=== PATIENT | male | born 1965 | race Caucasian/White ===

== ENCOUNTER → 2023-09-06 07:06 | Outpatient (REF) | payer BC, SELFPAY | LOC: HWRAD 07:06 | PROVIDERS: ATTENDING PHYSICIAN Internal Medicine | DX: Z87.891 Personal history of nicotine dependence (principal) | CPT/HCPCS: 71271 ==

== ENCOUNTER → 2023-09-10 | Outpatient (REF) | payer BC, SELFPAY | LOC: DHSLP | PROVIDERS: ATTENDING PHYSICIAN Internal Medicine | DX: G47.33 Obstructive sleep apnea (adult) (pediatric) (principal) | CPT/HCPCS: 95800 ==

== ENCOUNTER → 2023-10-29 07:21 | Outpatient (REF) | payer BC, SELFPAY | LOC: RCS 07:21 | PROVIDERS: ATTENDING PHYSICIAN Internal Medicine Cardiovascular Disease; FAMILY PHYSICIAN Family Medicine | DX: R93.89 Abnormal findings on diagnostic imaging of other specified body structures (principal) | CPT/HCPCS: 93017 ==

== ENCOUNTER → 2024-01-23 07:20 | Outpatient (REF) | payer BC, SELFPAY | LOC: HWRCS 07:20 | PROVIDERS: ATTENDING PHYSICIAN Internal Medicine; FAMILY PHYSICIAN Student in an Organized Health Care Education/Training Program | DX: I25.10 Atherosclerotic heart disease of native coronary artery without angina pectoris (principal) | CPT/HCPCS: 93306 ==

== ENCOUNTER 2024-05-31 20:07 | Emergency (ER) | payer BC, SELFPAY ==
[2024-05-31 20:10] VITALS: BP 124/69
[2024-05-31 20:22] VITALS: BP 128/71
--- NOTE | 2024-05-31 20:37 | ED.GENMED ---
History of Present Illness
General
Chief Complaint: Blood Pressure Problem
Source: patient and family
Time Seen by Provider: 05/31/24 20:19
History of Present Illness
History of Present Illness:
This patient is a 59-year-old male presents emergency department with reported low blood pressure at home. He was recently diagnosed with a [place] 3 weeks ago requiring emergent stent placement x 1. He has been generally compliant with his medications
although he admits that he forgot to take the aspirin and Plavix this morning. Upon hearing this, I immediately administered it to him. He says he felt well recently, today he just felt 'tired' all day. He denies any other symptoms such as chest
pain, dyspnea, diaphoresis, headache, dizziness, back pain, neck pain, numbness, or other complaints. When his blood pressure was checked at 8 PM it was noted to be low which prompted his visit here. Of note, patient had his ZAYNAB inhibitor
decreased by half on the 12th of this month for concerns of low blood pressure.
Past History
Past History
ED Past Medical History: CAD, HTN and Hypercholesterolemia
ED Past Surgical History: Cardiac
Social History
Tobacco: Smoker
Alcohol: Occasional
Drug: None
Personal:
Living: with family
Family History
Family History: Early CAD and CAD; Negative Diabetes, Hypertension or Asthma
Phy Exam
Physical Exam
Physical Exam:
GENERAL: Alert , in no apparent distress
EYE: pupils equal and reactive
NECK: Supple, no significant adenopathy.
ENT: o/p clr, mmm.
CARDIAC: Regular rate and rhythm .
LUNGS: Clear breath sounds bilaterally, no acute respiratory distress, no wheezes/rales/rhonchi
ABDOMEN: Soft, without focal tenderness, no r/g, no cvat
NEUROLOGICAL: Alert and oriented, no focal neuro deficits
SKIN: Warm and dry, skin intact.
MUSCULOSKELETAL: No edema, well perfused.
PSYCH: Normal and appropriate interaction.
Course
Orders/Labs/Results
Orders:
Orders
05/31/24 20:37
Electrocardiogram (*1) Stat
Reason for Study: Other
Other Reason for Exam: chest pain
Cardiac Monitoring- Treatment ONCE
EKG- Treatment ONCE
05/31/24 20:49
Complete Blood Count/No Diff Urgent
Comprehensive Metabolic Panel Urgent
Troponin I Urgent
Abnormal Lab Results
05/31/24
20:49
RBC 3.72 L 10^6/uL
(4.70-6.10)
Hgb 11.8 L g/dL
(13.0-18.0)
Hct 33.5 L %
(39.0-52.0)
MCH 31.7 H pg
(27.0-31.0)
BUN 21 H mg/dl
(9-20)
Glucose 109 H mg/dl
(70-99)
05/31/24 20:49
05/31/24 20:49
Vital Signs
Initial and Last Documented VS:
Initial Vital Signs
Temp Pulse Resp BP Pulse Ox
98.7 F 68 16 124/69 99
05/31/24 20:10 05/31/24 20:10 05/31/24 20:10 05/31/24 20:10 05/31/24 20:10
Last Documented Vital Signs
Temp Pulse Resp BP Pulse Ox
98.7 F 65 17 102/74 100
05/31/24 20:10 05/31/24 21:03 05/31/24 21:03 05/31/24 21:03 05/31/24 20:24
*Critical Care Note
Total Time (30-74mins, 75-104mins- exclusive of procedures): Not Applicable
Update Note
Update Note:
Patient presents to the Emergency Department with fatigue
Number and Complexity of Problems Addressed at the Encounter
� Chronic conditions affecting care:
� Acute Exacerbation and/or Progression of Chronic Illness:
� Differential Diagnosis includes: But not limited to hypotension, electrolyte disorder, ACS, anemia, etc. etc.
Amount and/or Complexity of Data to be Reviewed and Analyzed
� I performed an independent evaluation of and my interpretation is:
EKG: Read by me, normal sinus rhythm, normal rate, normal axis, nonspecific T wave inversions
CT:
Xrays:
Laboratory Studies: Generally unremarkable
Other:
� Review of other/old records reveals:
� Clinical information was obtained by an independent historian: and children who are at bedside
� Prescriptions/Medications Considered but not given:
� Further testing considered but not performed:
Risk of Complications and/or Morbidity or Mortality of Patient Management
� Social determinants of health affecting care:
� Discussion with other providers (PCP, Hospitalists, Consultants, etc):
� Escalation of care including admission/observation vs risk of discharge considered: Patient remains asymptomatic here. Of note, he states that he forgot to take all his medications this morning including his beta-laura and
ZAYNAB inhibitor. Case discussed with on-call renal technician for [facility]. Of note, patient's blood pressure has been relatively stable here and he does not have any symptoms. I highly doubt that his fatigue is a component of ACS but rather medication
beta-laura/hypotension related. Recommendation is for patient to discontinue the ramipril, and to decrease his beta-laura to 12.5 mg for the next 2 days until seen in follow-up on Sunday. Will discuss with patient including importance blood
pressure monitoring over the next 2 days, importance of taking antiplatelet agents, and reasons to return to the ER.
ED Attending Note
-
Portions of this chart may have been created with voice recognition software.� Occasional wrong word or��sound alike� substitutions may have occurred due to the inherent limitations of voice recognition software.
Discharge Plan
Departure
Patient Disposition: Home (Routine Discharge)
Date of Disposition: 05/31/24
Time of Disposition: 22:28
Patient with high blood pressure during this ER visit?: Yes
Condition: Good
Discharge Problem:
Hypotension, Fatigue
Instructions: Fatigue (DC), BLOOD PRESSURE
Prescriptions:
No Action
atorvastatin 80 mg Tablet
80 mg PO HS
clopidogrel [Plavix] 75 mg Tablet
75 mg PO DAILY
aspirin 81 mg Tablet,Chewable
81 mg PO DAILY
metoprolol succinate 25 mg Tablet Extended Release 24 Hr
25 mg PO DAILY
ramipril 5 mg Capsule
5 mg PO DAILY
Referrals:
Porfirio Smith MD [Family Provider] -
Activity Restrictions/Additional Instructions:
YOU SHOULD CALL YOUR SUPERVISOR [employer] [facility] ON SUNDAY MORNING WITH INTENTION TO BE SEEN THIS WEEK. YOU SHOULD DISCONTINUE YOUR MEDICATION CALLED RAMIPRIL. YOU SHOULD DECREASE YOUR METOPROLOL FROM 25 MG TO 12.5 MG ONCE A DAY. YOU SHOULD REMEMBER TO TAKE
YOUR ASPIRIN AND CLOPIDOGREL DIRECTED. THIS IS VERY IMPORTANT! IF YOU DEVELOP DIZZINESS, LOW BLOOD PRESSURE, CHEST PAIN, SHORTNESS OF BREATH, OR OTHER WORRISOME SIGNS, PLEASE RETURN TO THE ER IMMEDIATELY.
Interventions
Interventions:
*Risk Screen - Suicide Last Done: 05/31/24 20:10
*General Assessment Last Done: 05/31/24 20:51
*Neglect/Abuse Screening Last Done: 05/31/24 20:51
ED- Fall Risk Assessment Last Done: 05/31/24 21:05
*ED COVID-19 Vaccine History Last Done: 05/31/24 20:51
ED- Cardiac Assessment Last Done: 05/31/24 21:05
ED- Neurological Assessment Last Done: 05/31/24 21:05
ED- Pulmonary Assessment Last Done: 05/31/24 21:05
Discharge Date and Time
Print Language: [place]
--- NOTE | 2024-05-31 20:54 | EDRN ---
Around 2004 this evening, pts bp was 80/46 on home BP cuff. Pt says he felt fine when his bp was read as this low. Pt was lying still when it was taken. This was big difference from what pt's bp has been. Pt offers no complaints.
[2024-05-31 20:57] VITALS: BMI 28.6
[2024-05-31 20:57] LABS: Hematocrit 33.5 % (39.0-52.0); Hemoglobin 11.8 g/dL (13.0-18.0); Mean Corp Hgb Conc. 35.2 g/dL (33.0-37.0); Mean Corpuscular Hgb 31.7 pg (27.0-31.0); Mean Corpuscular Volume 90.1 fL (80.0-94.0); Mean Platelet Volume 10.4 fL (7.4-10.4); Platelet Count 140 10^3/uL (130-400); Red Blood Cell Count 3.72 10^6/uL (4.70-6.10); Red Cell Dist. Width 12.3 % (11.5-14.5); White Blood Cell Count 7.7 10^3/uL (4.8-10.8)
[2024-05-31 21:03] VITALS: BP 102/74
[2024-05-31 21:12] LABS: ALT (SGPT) 27 U/L (0-50); AST (SGOT) 25 U/L (17-59); Albumin 4.1 g/dl (3.5-5.0); Alkaline Phosphatase 57 U/L (38-126); Blood Urea Nitrogen 21 mg/dl (9-20); Calcium 8.8 mg/dl (8.4-10.2); Carbon Dioxide 28 mmol/L (22-30); Chloride 101 mmol/L (98-107); Estimated Creatinine Clearance 81 ml/min; Glucose 109 mg/dl (70-99); Potassium 4.5 mmol/L (3.5-5.1); Sodium 139 mmol/L (135-145); Total Bilirubin 0.5 mg/dl (0.2-1.3); Total Protein 6.6 g/dl (6.3-8.2); eGFR > 60.00
[2024-05-31 21:25] LABS: Troponin I < 0.012 ng/ml
[2024-05-31 22:00] VITALS: BP 110/72
== END 2024-05-31 22:55 | disposition home or self-care (01) ==
LOC: EMR 20:07
PROVIDERS: EMERGENCY PHYSICIAN Emergency Medicine; FAMILY PHYSICIAN Family Medicine
DX: I95.9 Hypotension, unspecified (principal); R53.83 Other fatigue; F17.200 Nicotine dependence, unspecified, uncomplicated; Z82.49 Family history of ischemic heart disease and other diseases of the circulatory system
CPT/HCPCS: 99284; 80053; 84484; 85027; 93005

== ENCOUNTER → 2025-01-01 14:47 | Outpatient (REF) | payer BC, SELFPAY | LOC: PAVMRI 14:47 | PROVIDERS: ATTENDING PHYSICIAN Physician Assistant | DX: M25.561 Pain in right knee (principal) | CPT/HCPCS: 73721 ==

== ENCOUNTER → 2025-03-13 12:33 | Outpatient (REF) | payer BC, SELFPAY ==
[2025-03-13 14:25] LABS: PSA, Total - Screen 0.85 ng/ml (0.0-4.0)
== END ==
LOC: REG 12:33
PROVIDERS: ATTENDING PHYSICIAN Student in an Organized Health Care Education/Training Program
DX: Z12.5 Encounter for screening for malignant neoplasm of prostate (principal)
CPT/HCPCS: 36415; G0103